=== PATIENT | male | born 1990 | race Caucasian/White ===

== ENCOUNTER 2019-01-18 08:07 | Emergency (ER) | payer OTHER, SELFPAY ==
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
[2019-01-18 09:35] LABS: #Lymphocytes 1.4 thou/uL (1.20-3.40); #Monocytes 0.9 thou/uL (0.11-0.59); #Neutrophils 8.2 thou/uL (1.40-6.50); %Basophils 0.2 % (0.0-1.0); %Eosinophils 0.2 % (0.0-10.0); %Lymphocytes 13.4 % (21.0-51.0); %Monocytes 8.4 % (0.0-10.0); %Neutrophils 77.9 % (42.0-75.0); Mean Corpuscular HGB CONC 34.6 g/dL (32.0-36.0); Mean Corpuscular Hemoglobin 31.8 pg (27.0-31.0); Mean Platelet Volume 8.6 fL (7.4-10.4); Platelet Count 221 thou/uL (130-400); RBC Distribution Width 11.1 % (11.5-14.5); Red Blood Cell (RBC) Count 4.39 mill/uL (4.70-6.10); White Blood Cell (WBC) Count 10.5 thou/uL (4.8-10.8)
[2019-01-18 09:59] LABS: ALT (SGPT) 23 U/L (8-55); AST (SGOT) 20 U/L (5-34); Albumin 3.9 g/dL (3.5-5.0); Alkaline Phosphatase 48 U/L (40-110); Anion Gap 10 mmol/L (10-20); BUN (Urea Nitrogen) 24 mg/dL (8.9-20.6); Bilirubin, Total 0.6 mg/dL (0.2-1.2); Calc. Creatinine Clearance 0 mL/min (70-130); Calcium 8.6 mg/dL (7.8-10.44); Carbon Dioxide 26 mmol/L (22-29); Chloride 107 mmol/L (98-107); Estimated GFR-MDRD 86; Glucose 141 mg/dL (70-105); Potassium 3.9 mmol/L (3.5-5.1); Protein, Total 5.9 g/dL (6.0-8.3); Sodium 139 mmol/L (136-145)
[2019-01-18 10:00] LABS: Acetaminophen Less than 6.0 mcg/mL (10.0-30.0); Alcohol Less than 10 mg/dL (Less than 10); CK (CPK) 427 U/L (30-200); Lipase 20 U/L (8-78); Salicylate Less than 8.0 mg/dL (15.0-30.0)
[2019-01-18] MEDS ORDERED: Ibuprofen 800 MG TAB ONE (12:44)
[2019-01-18] MEDS ORDERED: Iopamidol-370 76% 500 ML 1 ML ONE (16:12)
== END 2019-01-18 13:26 | disposition home or self-care (01) ==
LOC: ERS 08:07
DX: S30.811A Abrasion of abdominal wall, initial encounter (principal); S70.311A Abrasion, right thigh, initial encounter; E10.9 Type 1 diabetes mellitus without complications; V89.2XXA Person injured in unspecified motor-vehicle accident, traffic, initial encounter
CPT/HCPCS: 70450; 71045; 71260; 72125; 74177; 80053; 80307; 82550; 83690; 84443; 84484; 85025; 93005; 96360; Q9967

== ENCOUNTER 2023-08-21 07:34 | Inpatient (IN) | payer OTHER, SELFPAY ==
[2023-08-21] MEDS ORDERED: Senokot S 8.6-50 MG TAB PO PRN (08:50)
[2023-08-21] MEDS ORDERED: Acetaminophen 325 MG TAB PO PRN (08:50)
[2023-08-21] MEDS ORDERED: Dextrose 5 %-0.45 % NaCl 1,000 ML IV PRN (08:53)
[2023-08-21] MEDS ORDERED: NS 0.9% w/ 20 MEQ KCL 1,000 ML IV PRN ×2 (08:53)
[2023-08-21] MEDS ORDERED: Electrolyte Replacement Protocol 1 EACH IVPB SCH (08:53)
[2023-08-21] MEDS ORDERED: Dextrose 50% Abboject 50 ML SYRINGE SLOW IVP PRN ×2 (08:53→13:23)
[2023-08-21] MEDS ORDERED: Sodium Chloride 0.9% 1,000 ML IV PRN ×4 (08:53)
[2023-08-21] MEDS ORDERED: D5 1/2 NS w/20 mEq KCL 1,000 ML IV PRN (08:53)
[2023-08-21] MEDS ORDERED: Insulin Reg, Human 100 UNITS in Sodium Chloride 0.9% 100 ML IVPB SCH (09:00)
[2023-08-21] MEDS ORDERED: NS 0.9% w/ 20 MEQ KCL 2,000 ML ONE (09:11)
[2023-08-21] MEDS ORDERED: Ondansetron PF 4 MG/2 ML Vial IVP PRN (09:18)
[2023-08-21 09:33] LABS: ALT (SGPT) 8 U/L (8-55); AST (SGOT) 9 U/L (5-34); Albumin 3.2 g/dL (3.5-5.0); Alkaline Phosphatase 65 U/L (40-110); Anion Gap 18 mmol/L (10-20); BUN (Urea Nitrogen) 13 mg/dL (8.9-20.6); Bilirubin, Total 0.7 mg/dL (0.2-1.2); Calc. Creatinine Clearance 0 mL/min (70-130); Calcium 8.6 mg/dL (7.8-10.44); Carbon Dioxide 14 mmol/L (22-29); Chloride 92 mmol/L (98-107); Estimated GFR 120; Globulin 2.5 g/dL (2.4-3.5); Glucose 323 mg/dL (70-105); Magnesium 1.6 mg/dL (1.6-2.6); Potassium 5.2 mmol/L (3.5-5.1); Protein, Total 5.7 g/dL (6.0-8.3); Sodium 119 mmol/L (136-145)
[2023-08-21] MEDS ORDERED: fentaNYL 50 mcg/mL 1 mL Vial ONE (09:52)
[2023-08-21 09:57] LABS: Calcium, Ionized (venous) 1.17 mmol/L (1.16-1.32); Chloride (VBG) 89 mmol/L (98-106); Hematocrit-VBG 40 % (42.0-52.0); Hemoglobin (Hb) 13.7 g/dL (13.2-17.3); Potassium (VBG) 4.89 mmol/L (3.70-5.30)
[2023-08-21 09:59] LABS: Actual Bicarbonate (HCO3v) 14.1 mEq/L (22-28); Sodium 119 mmol/L (133-146); pH (venous) 7.203 (7.32-7.43)
[2023-08-21 10:24] LABS: HBsAg Index 0.35 S/CO (0-0.99); HIV (1/2) Antibody/Antigen NONREACTIVE (NonReactive); HIV 1/2 INDEX 0.05 S/CO (<1.00); Hep B Surf Ag NONREACTIVE S/CO (NonReactive); Hep C IgG Ab NONREACTIVE S/CO (NonReactive)
[2023-08-21] MEDS ORDERED: Vancomycin (BATCH) 1.75 GM in Premix 1 BAG IVPB SCH (11:30)
[2023-08-21] MEDS ORDERED: Sodium Chloride 0.9% 100 ML ONE (11:54)
[2023-08-21] MEDS ORDERED: guaiFENesin ER 600 MG TAB ONE (11:54)
[2023-08-21] MEDS ORDERED: Metoclopramide HCl 10 MG (2 mL) VIAL ONE (11:54)
[2023-08-21] MEDS ORDERED: Enoxaparin 40 MG (0.4 mL) SYRINGE ONE (11:54)
[2023-08-21] MEDS ORDERED: Cefepime 2 GM VIAL ONE (11:54)
[2023-08-21] MEDS ORDERED: Magnesium 2 GM/50 ML BAG (IN WATER) ONE (11:54)
[2023-08-21 11:59] LABS: Lactic Acid 1.5 mmol/L (0.5-2.2)
[2023-08-21] MEDS: Enoxaparin 40 MG (0.4 mL) SYRINGE SC SCH (12:08)
[2023-08-21] MEDS: Magnesium 2 GM/50 ML(in water) 2 GM in Premix 1 BAG IVPB SCH (12:08)
[2023-08-21] MEDS: guaiFENesin ER 600 MG TAB PO SCH (12:08)
[2023-08-21] MEDS: Cefepime 1 GM in Sodium Chloride 0.9% 100 ML IVPB SCH (12:08)
[2023-08-21] MEDS: Metoclopramide HCl 10 MG (2 mL) VIAL IVP SCH (12:09)
[2023-08-21] MEDS: Vancomycin (BATCH) 1.5 GM in Premix 1 BAG IVPB SCH (12:50)
[2023-08-21 12:59] LABS: Anion Gap 10 mmol/L (10-20); BUN (Urea Nitrogen) 11 mg/dL (8.9-20.6); Calc. Creatinine Clearance 131 mL/min (70-130); Calcium 8.5 mg/dL (7.8-10.44); Carbon Dioxide 17 mmol/L (22-29); Chloride 101 mmol/L (98-107); Estimated GFR 123; Glucose 214 mg/dL (70-105); Potassium 4.6 mmol/L (3.5-5.1); Sodium 123 mmol/L (136-145)
[2023-08-21] MEDS ORDERED: Glucagon 1 MG/ML KIT IM PRN (13:23)
[2023-08-21] MEDS ORDERED: Dextrose 5% in Water 1,000 ML IV PRN (13:23)
[2023-08-21 13:28] LABS: #Basophils Less than 0.03 10x3/uL (0.0-0.2); #Eosinphils Less than 0.03 10x3/uL (0.0-0.7); %Lymphocytes 18.7 % (21.0-51.0); %Monocytes 8.5 % (0.0-10.0); %Neutrophils 72.5 % (42.0-75.0); Hematocrit 32.8 % (42.0-52.0); Hemoglobin 12.4 g/dL (14.0-18.0); Mean Corpuscular HGB CONC 37.8 g/dL (32.0-36.0); Mean Corpuscular Hemoglobin 30.7 pg (27.0-31.0); Mean Corpuscular Volume 81.2 fL (78.0-98.0); Mean Platelet Volume 10.2 fL (7.4-10.4); Platelet Count 400 10x3/uL (130-400); RBC Distribution Width 11.9 % (11.5-14.5); Red Blood Cell (RBC) Count 4.04 mill/uL (4.70-6.10)
[2023-08-21] MEDS: Ipratropium/Albuterol 3 ML NEB NEB SCH (14:17)
[2023-08-21] MEDS: Sodium Chloride 0.45% 1,000 ML IV SCH (14:45)
[2023-08-21] MEDS: HumaLOG 300 UNITS/3 ML VIAL SC PRN (17:10)
[2023-08-21] MEDS: HYDROcodone/Acetaminophen 5/325 mg Tablet PO PRN (17:17)
[2023-08-21] MEDS: Cefepime 2 GM in Sodium Chloride 0.9% 100 ML IVPB SCH (20:44)
[2023-08-21 20:56] LABS: Anion Gap 14 mmol/L (10-20); BUN (Urea Nitrogen) 7 mg/dL (8.9-20.6); Calc. Creatinine Clearance 118 mL/min (70-130); Calcium 8.4 mg/dL (7.8-10.44); Carbon Dioxide 18 mmol/L (22-29); Chloride 99 mmol/L (98-107); Estimated GFR 119; Glucose 295 mg/dL (70-105); Potassium 4.4 mmol/L (3.5-5.1); Sodium 127 mmol/L (136-145)
[2023-08-21 22:29] LABS: Anion Gap 14 mmol/L (10-20); BUN (Urea Nitrogen) 7 mg/dL (8.9-20.6); Calc. Creatinine Clearance 119 mL/min (70-130); Calcium 8.3 mg/dL (7.8-10.44); Carbon Dioxide 20 mmol/L (22-29); Chloride 99 mmol/L (98-107); Estimated GFR 119; Glucose 258 mg/dL (70-105); Potassium 3.8 mmol/L (3.5-5.1); Sodium 129 mmol/L (136-145)
[2023-08-22 02:04] LABS: Potassium, Urine Less than 10.0 mmol/L; Sodium, Urine 43 mmol/L (Not Available)
[2023-08-22 06:03] LABS: #Basophils Less than 0.03 10x3/uL (0.0-0.2); #Eosinphils Less than 0.03 10x3/uL (0.0-0.7); %Basophils 0.3 % (0.0-1.0); %Eosinophils 0.3 % (0.0-10.0); %Lymphocytes 19.1 % (21.0-51.0); %Monocytes 9.4 % (0.0-10.0); %Neutrophils 70.6 % (42.0-75.0); Hematocrit 35.3 % (42.0-52.0); Mean Corpuscular HGB CONC 36.8 g/dL (32.0-36.0); Mean Corpuscular Hemoglobin 30.7 pg (27.0-31.0); Mean Corpuscular Volume 83.3 fL (78.0-98.0); Mean Platelet Volume 9.8 fL (7.4-10.4); Platelet Count 351 10x3/uL (130-400); RBC Distribution Width 12.1 % (11.5-14.5); Red Blood Cell (RBC) Count 4.24 mill/uL (4.70-6.10)
[2023-08-22 06:51] LABS: Hemoglobin A1c 8.9 % (4.0-6.0)
[2023-08-22 06:55] LABS: Anion Gap 19 mmol/L (10-20); BUN (Urea Nitrogen) 4 mg/dL (8.9-20.6); Calc. Creatinine Clearance 114 mL/min (70-130); Calcium 8.5 mg/dL (7.8-10.44); Carbon Dioxide 16 mmol/L (22-29); Chloride 96 mmol/L (98-107); Estimated GFR 118; Glucose 378 mg/dL (70-105); Sodium 127 mmol/L (136-145)
[2023-08-22] MEDS ORDERED: Pepto Bismol Chew TAB PO PRN (07:40)
[2023-08-22] MEDS ORDERED: Insulin NPH Human Isophane 100 UNITS/ML (10 ML VIAL) SQ SCH ×2 (08:00→17:00)
[2023-08-22] MEDS: Methocarbamol 500 MG TAB PO SCH (08:36)
[2023-08-22] MEDS: Lisinopril 20 MG TAB PO SCH (08:36)
[2023-08-22] MEDS: DULoxetine 30 MG CAP PO SCH (08:36)
[2023-08-22] MEDS: Pantoprazole 40 MG VIAL IVP SCH (08:37)
[2023-08-22] MEDS ORDERED: Non-Formulary Item 1 EACH (Methocarbamol [Methocarbamol] 750 MG Tablet) PO SCH (09:00)
[2023-08-22 12:17] LABS: Anion Gap 15 mmol/L (10-20); BUN (Urea Nitrogen) 4 mg/dL (8.9-20.6); Calc. Creatinine Clearance 118 mL/min (70-130); Calcium 8.4 mg/dL (7.8-10.44); Carbon Dioxide 24 mmol/L (22-29); Chloride 93 mmol/L (98-107); Estimated GFR 119; Glucose 356 mg/dL (70-105); Sodium 128 mmol/L (136-145)
[2023-08-22] MEDS ORDERED: Ipratropium/Albuterol 3 ML NEB NEB PRN (12:36)
[2023-08-22] MEDS: Vancomycin (BATCH) 1.25 GM in Premix 1 BAG IVPB SCH (13:24)
[2023-08-22] MEDS: Sodium Chloride 0.45% 1,000 ML IV SCH (13:25)
[2023-08-22] MEDS: Insulin NPH Human Isophane 100 UNITS/ML (10 ML VIAL) SQ SCH (18:47)
[2023-08-22 21:35] LABS: Anion Gap 14 mmol/L (10-20); BUN (Urea Nitrogen) 5 mg/dL (8.9-20.6); Calc. Creatinine Clearance 131 mL/min (70-130); Carbon Dioxide 26 mmol/L (22-29); Chloride 94 mmol/L (98-107); Estimated GFR 123; Glucose 293 mg/dL (70-105); Potassium 3.9 mmol/L (3.5-5.1); Sodium 130 mmol/L (136-145)
[2023-08-22 22:37] LABS: Anion Gap 14 mmol/L (10-20); BUN (Urea Nitrogen) 6 mg/dL (8.9-20.6); Calc. Creatinine Clearance 121 mL/min (70-130); Calcium 8.8 mg/dL (7.8-10.44); Carbon Dioxide 26 mmol/L (22-29); Chloride 95 mmol/L (98-107); Estimated GFR 120; Glucose 301 mg/dL (70-105); Potassium 4.3 mmol/L (3.5-5.1); Sodium 131 mmol/L (136-145)
[2023-08-23 05:57] LABS: Vancomycin, Random 8.8 ug/mL (See Comment)
[2023-08-23 05:58] LABS: Anion Gap 15 mmol/L (10-20); BUN (Urea Nitrogen) 5 mg/dL (8.9-20.6); Calc. Creatinine Clearance 136 mL/min (70-130); Carbon Dioxide 26 mmol/L (22-29); Chloride 94 mmol/L (98-107); Estimated GFR 125; Glucose 250 mg/dL (70-105); Potassium 4.6 mmol/L (3.5-5.1); Sodium 130 mmol/L (136-145)
[2023-08-23] MEDS: Insulin NPH Human Isophane 100 UNITS/ML (10 ML VIAL) SQ SCH (08:25)
[2023-08-24] MEDS: Pantoprazole DR 40 MG TAB PO SCH (09:03)
[2023-08-24] MEDS: Insulin Glargine 30 UNITS/0.3 ML VIAL SC SCH (09:04)
[2023-08-24 09:31] LABS: Anion Gap 13 mmol/L (10-20); BUN (Urea Nitrogen) 4 mg/dL (8.9-20.6); Calc. Creatinine Clearance 140 mL/min (70-130); Calcium 8.8 mg/dL (7.8-10.44); Carbon Dioxide 26 mmol/L (22-29); Chloride 95 mmol/L (98-107); Estimated GFR 124; Glucose 260 mg/dL (70-105); Potassium 3.6 mmol/L (3.5-5.1); Sodium 130 mmol/L (136-145)
[2023-08-24] MEDS: Ketorolac Tromethamine 30 MG (1 mL) VIAL IVP SCH (20:58)
[2023-08-25] MEDS: Morphine 2 MG/ML VIAL SLOW IVP SCH (01:38)
[2023-08-25 05:35] LABS: #Basophils 0.03 10x3/uL (0.0-0.2); %Basophils 0.5 % (0.0-1.0); %Eosinophils 1.5 % (0.0-10.0); %Lymphocytes 34.3 % (21.0-51.0); %Monocytes 8.1 % (0.0-10.0); %Neutrophils 55.3 % (42.0-75.0); Hematocrit 36.8 % (42.0-52.0); Hemoglobin 13.2 g/dL (14.0-18.0); Mean Corpuscular HGB CONC 35.9 g/dL (32.0-36.0); Mean Corpuscular Hemoglobin 30.6 pg (27.0-31.0); Mean Corpuscular Volume 85.2 fL (78.0-98.0); Mean Platelet Volume 9.7 fL (7.4-10.4); Platelet Count 402 10x3/uL (130-400); RBC Distribution Width 11.9 % (11.5-14.5); Red Blood Cell (RBC) Count 4.32 mill/uL (4.70-6.10)
[2023-08-25 05:54] LABS: Anion Gap 10 mmol/L (10-20); BUN (Urea Nitrogen) 6 mg/dL (8.9-20.6); Calc. Creatinine Clearance 140 mL/min (70-130); Carbon Dioxide 30 mmol/L (22-29); Chloride 93 mmol/L (98-107); Estimated GFR 124; Glucose 307 mg/dL (70-105); Potassium 3.8 mmol/L (3.5-5.1); Sodium 129 mmol/L (136-145)
[2023-08-25] MEDS ORDERED: Dextrose 50% Abboject 50 ML SYRINGE SLOW IVP PRN (09:15)
[2023-08-25] MEDS ORDERED: Dextrose 5% in Water 1,000 ML IV PRN (09:15)
[2023-08-25] MEDS ORDERED: Glucagon 1 MG/ML KIT IM PRN (09:15)
[2023-08-25] MEDS: Lactated Ringer's 1,000 ML IV SCH (10:16)
[2023-08-25] MEDS: Insulin Glargine 30 UNITS/0.3 ML VIAL SC SCH (10:37)
[2023-08-25] MEDS: Sodium Chloride 0.45% 1,000 ML IV SCH (14:19)
[2023-08-25] MEDS: Polyethylene Glycol 3350 17 GM Packet PO SCH (14:20)
[2023-08-25] MEDS: Bisacodyl 5 MG TAB PO SCH (14:20)
[2023-08-25] MEDS: Senokot S 8.6-50 MG TAB PO SCH (20:27)
[2023-08-26 05:18] LABS: #Basophils 0.05 10x3/uL (0.0-0.2); %Basophils 0.8 % (0.0-1.0); %Lymphocytes 32.6 % (21.0-51.0); %Monocytes 10.6 % (0.0-10.0); %Neutrophils 53.7 % (42.0-75.0); Hematocrit 39.1 % (42.0-52.0); Hemoglobin 13.9 g/dL (14.0-18.0); Mean Corpuscular HGB CONC 35.5 g/dL (32.0-36.0); Mean Corpuscular Hemoglobin 29.8 pg (27.0-31.0); Mean Corpuscular Volume 83.7 fL (78.0-98.0); Mean Platelet Volume 9.6 fL (7.4-10.4); Platelet Count 415 10x3/uL (130-400); Red Blood Cell (RBC) Count 4.67 mill/uL (4.70-6.10)
[2023-08-26 05:40] LABS: Anion Gap 9 mmol/L (10-20); BUN (Urea Nitrogen) 6 mg/dL (8.9-20.6); Calc. Creatinine Clearance 157 mL/min (70-130); Calcium 9.5 mg/dL (7.8-10.44); Carbon Dioxide 34 mmol/L (22-29); Chloride 91 mmol/L (98-107); Estimated GFR 126; Glucose 174 mg/dL (70-105); Potassium 4.2 mmol/L (3.5-5.1); Sodium 130 mmol/L (136-145)
[2023-08-26] MEDS: Polyethylene Glycol 3350 17 GM Packet PO SCH (08:48)
[2023-08-26] MEDS: Bisacodyl 5 MG TAB PO SCH (13:42)
[2023-08-26] MEDS: Ketorolac Tromethamine 30 MG (1 mL) VIAL IVP SCH (13:42)
[2023-08-27] MEDS: Insulin Glargine 30 UNITS/0.3 ML VIAL SC SCH (00:23)
[2023-08-27 07:59] VITALS: BP 143/96; TEMP 97.6
[2023-08-27 11:51] LABS: #Basophils 0.07 10x3/uL (0.0-0.2); %Basophils 0.7 % (0.0-1.0); %Eosinophils 1.4 % (0.0-10.0); %Lymphocytes 27.4 % (21.0-51.0); %Monocytes 8.7 % (0.0-10.0); %Neutrophils 61.2 % (42.0-75.0); Hematocrit 43.6 % (42.0-52.0); Hemoglobin 15.1 g/dL (14.0-18.0); Mean Corpuscular HGB CONC 34.6 g/dL (32.0-36.0); Mean Corpuscular Hemoglobin 29.6 pg (27.0-31.0); Mean Corpuscular Volume 85.5 fL (78.0-98.0); Mean Platelet Volume 9.7 fL (7.4-10.4); Platelet Count 498 10x3/uL (130-400); RBC Distribution Width 12.4 % (11.5-14.5)
[2023-08-27 12:08] LABS: Anion Gap 16 mmol/L (10-20); BUN (Urea Nitrogen) 8 mg/dL (8.9-20.6); Calc. Creatinine Clearance 133 mL/min (70-130); Calcium 9.9 mg/dL (7.8-10.44); Carbon Dioxide 29 mmol/L (22-29); Chloride 95 mmol/L (98-107); Estimated GFR 120; Glucose 237 mg/dL (70-105); Potassium 4.7 mmol/L (3.5-5.1); Sodium 135 mmol/L (136-145)
== END 2023-08-27 13:21 | DRG 871 ==
LOC: ERS 07:34 → ERHOLD 08:53 → EEVIPCON 08:53 → IMCU/EMU 13:03 → T4-A 08-23 11:22
PROVIDERS: ADMIT Family Medicine; ATTEND Internal Medicine
DX: A41.9 Sepsis, unspecified organism (principal); E10.10 Type 1 diabetes mellitus with ketoacidosis without coma; J18.9 Pneumonia, unspecified organism; E87.1 Hypo-osmolality and hyponatremia; K20.90 Esophagitis, unspecified without bleeding; E87.5 Hyperkalemia; E10.40 Type 1 diabetes mellitus with diabetic neuropathy, unspecified; I10 Essential (primary) hypertension; K59.00 Constipation, unspecified; Z79.4 Long term (current) use of insulin; Z87.891 Personal history of nicotine dependence; E87.6 Hypokalemia
CPT/HCPCS: 36415; 36416; 71045; 74177; 76870; 80048; 80053; 80202; 81001; 82010; 82436; 82805; 83036; 83605; 83690; 83735; 83880; 83930; 83935; 84133; 84300; 84443; 84484; 85025; 86803; 87040; 87081; 87086; 87340; 93005; 93010; 93976; 94640; 94760; 96361; 96365; 96367; 96374; 96375; C9113; J0692; J1650; J1815; J1885; J2270; J2272; J2405; J2550; J2765; J3010; J3370; J3475; J3480; J3490; J7120; J7131; J7611; J7620; Q9967